=== PATIENT | female | born 1980 | race Caucasian/White ===

== ENCOUNTER 2016-11-14 12:50 | Inpatient (IN) | payer MEDICAID ==
[2016-11-14] MEDS ORDERED: fentaNYL 100 MCG/2 ML VIAL IVP PRN (13:12)
[2016-11-14] MEDS ORDERED: SODIUM CHLORIDE FLUSH 0.9% 10 ML SYRINGE IVP PRN (13:12)
[2016-11-14] MEDS: LACTATED RINGERS 1,000 ML IV SCH ×2 (13:42→18:38)
[2016-11-14 14:13] LABS: BASOPHILS # (AUTO) 0.2 10^3/uL (0.0-0.1); BASOPHILS % (AUTO) 1.4 %; EOSINOPHILS % (AUTO) 0.2 %; HCT - HEMATOCRIT 36.3 % (37.0-47.0); HGB - HEMOGLOBIN 12.5 g/dL (12.0-16.0); LYMPHOCYTES # (AUTO) 1.3 10^3/uL (1.5-3.5); LYMPHOCYTES % (AUTO) 8.3 %; MEAN CORPUSCULAR HEMOGLOBIN 31.8 pg (27.0-31.0); MEAN CORPUSCULAR HGB CONC 34.5 g/dL (32.0-36.0); MEAN CORPUSCULAR VOLUME 92.1 fL (81.0-99.0); MEAN PLATELET VOLUME 8.1 fL (7.9-10.8); MONOCYTES # (AUTO) 0.9 10^3/uL (0.0-1.0); MONOCYTES % (AUTO) 5.7 %; NEUTROPHILS # (AUTO) 13.6 10^3/uL (1.5-6.6); NEUTROPHILS % (AUTO) 84.4 %; NUCLEATED RED BLOOD CELLS AUTO 0.1 /100WBC; RED BLOOD COUNT 3.94 10^6/uL (4.20-5.40); RED CELL DISTRIBUTION WIDTH 13.7 % (12.0-15.0); UNCORRECTED WHITE BLOOD COUNT 16.1 x10^3/uL; WHITE BLOOD COUNT 16.1 x10^3/uL (4.8-10.8)
[2016-11-14] MEDS ORDERED: fentaNYL 100 MCG/2 ML VIAL ONE (14:16)
[2016-11-14] MEDS ORDERED: fent/BUPIV 2 MCG/0.125% 250 ML EP ONE (14:16)
[2016-11-14] MEDS ORDERED: ROPIVACAINE 0.2% PF 10 ML VIAL EPI ONE (14:30)
[2016-11-14] MEDS ORDERED: NALOXONE 0.4 MG/ML VIAL IVP PRN (15:14)
[2016-11-14] MEDS ORDERED: ONDANSETRON 4 MG/2 ML VIAL IVP PRN (15:14)
[2016-11-14] MEDS ORDERED: LACTATED RINGERS 500 ML IV ONE (15:14)
[2016-11-14] MEDS ORDERED: METOCLOPRAMIDE 10 MG/2 ML VIAL IVP PRN (15:14)
[2016-11-14] MEDS ORDERED: ePHEDrine 50 MG/ML VIAL IVP PRN (15:14)
[2016-11-14] MEDS ORDERED: diphenhydrAMINE INJ 50 MG/ML VIAL IVP PRN (15:14)
[2016-11-14] MEDS ORDERED: fent/BUPIV 2 MCG/0.125% 250 ML EP PRN (15:14)
[2016-11-14] MEDS ORDERED: NALBUPHINE 20 MG/ML AMP IVP PRN (15:14)
[2016-11-14] MEDS: CLINDAMYCIN 900 MG/50 ML 50 ML IV SCH (15:45)
--- NOTE | 2016-11-14 17:14 | PROVIDER PROGRESS NOTE ---
Labor Progress Note - Uterine Monitoring Uterine Monitoring Mode: positive: Palpation Contraction Frequency (min/apart): Q 3-4 min Contraction Intensity: positive: Moderate to strong Uterine Resting Tone: positive: Soft - Monitoring Monitor Mode: positive: External ultrasound Heart Rate Baseline: 120 Heart Rate Variability: positive: Moderate (6-25 bmp) Accelerations: positive: Present, 15x15 Decelerations: positive: None Strip Review: positive: Category I - Vaginal Exam Dilation (in cm): 10 Effacement (%): 100% Station: 2 Cervical Position: Anterior - Labor Progress Note Labor Progress Note/Additional Text: making inappropriate sarcastic comments to nursing and threatens to call his father "the insurance attorney" about her care. Nursing complained about these comments and they feel pressured, attempted intimidation, and that he may interfere w care. was sitting in hostile body posture and now pacing the L&D halls. Discussed situation w Nursing Carpet Measurer. My primary goal is to prevent this behavior from escalating and compromising her care, particularly if intervention is required such as forceps or Emergent CS. Discussed situation w GARY Coleman and I will discuss this issue directly w the . With epidural, dilation & descent occurring. EFM stable and CAT1 I did not have opportunity to meet, I was called to room for a 90sec deceleration. 's demeanor improved w time.
[2016-11-14] MEDS ORDERED: OXYTOCIN/SODIUM CHLORIDE 250 ML IV SCH (19:00)
--- NOTE | 2016-11-14 19:00 | HISTORY & PHYSICAL EXAMINATION ---
DATE OF ADMISSION: 11/14/2016 DIAGNOSES 1. A 41-week gestation, labor. 2. Failure to descend and dilate over 8 hours. 3. Prolonged rupture of membranes. 4. Advanced maternal age. HISTORY OF THE PRESENT ILLNESS: [facility] called to inform us of impending transfer of a mother in labor who has failed to significantly dilate beyond 8 cm with a stable tracing. At 1240, she arrived at the hospital in stable condition with her and Carine CONNOLLY in attendance. The patient is a 36-year-old primigravida at 41 weeks' gestation who ruptured her membranes on November 12 at roughly 8 a.m. and presented to [place]. Rupture was confirmed with AmniSure, and clear fluid was reported. Strip was reported as category 1. Contractions did not begin until November 13 at 4 a.m. Fluid was still reported as clear and tracing, category 1. She eventually progressed to 8 cm, at which time, further dilation and descent ceased. She was given castor oil on November 14, 2016, at 940 hours to augment labor. Intermittent auscultation was used. For pain relief, she began hot soaks on November 14, 2016, in the birthing tub. During intermittent auscultation at 12 a.m. on November 14, 2016, occasional deceleration was noted and the contractions subsided. This prompted a request for transfer of care. I reviewed the available paper chart records and was briefed by Carine Do of and intrapartum events. Currently, the patient reports stronger contractions than this morning at greater frequency. She reports good movement. There are no signs or symptoms of preeclampsia. She reports some "chills" sensation but no true rigors or fever. She has no urinary tract symptoms, recent illness, and her GBS status is negative. She denies symptoms of preeclampsia other than pedal edema. I had an extended discussion about transfer of care and the issues at hand inclusive of failure to dilate and descend, need for reliable heart tracing, inclusive possible insertion of scalp lead and IUPC, and the possibility of a section if there is no further progress. The patient is resistive to intervention. She was given reassurance that she would have a chance for explanation and no unreasonable interventions would take place. LABS: Blood type A positive, antibody screen negative, HIV negative chlamydia/gonorrhea negative, fern negative. Glucose challenge test normal, 90. Baseline hemoglobin 12.9, platelets 199. Quad marker screen, 1/350 Down's risk. 03/7299 neural tube defect risk. 1/10,000 trisomy 18 risk. Twenty-week anatomy scan, essentially normal growth. PAST MEDICAL HISTORY: The patient denies chronic disease history. Gynecologically, she denies STD history or abnormal Pap smear history. PAST SURGICAL HISTORY: The patient underwent a hernia repair in 1983. ALLERGIES: SENSITIVITY TO PENICILLIN AND LATEX NOTED. FAMILY HISTORY: No congenital anomalies, retardation, or genetic diseases is known of. SOCIAL HISTORY: . 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 Denies drug, tobacco or alcohol use. REVIEW OF SYSTEMS CONSTITUTIONAL: Negative. HEENT: Negative. PULMONARY: Negative. CARDIAC: Negative. GI: Negative. : Negative, reference HPI. MUSCULOSKELETAL: Negative. HEMATOLOGIC/LYMPHATIC: Negative. SKIN: Negative. NEUROLOGIC: Negative. PHYSICAL EXAMINATION GENERAL: The patient in cat position in labor, Carine Do in attendance. VITAL SIGNS: Temperature 97.7, blood pressure 130/70. HEENT: Supple neck. EOMI. Nonicteric sclerae. Moist mucous membranes. No thyromegaly. LUNGS: Clear to auscultation. CARDIAC: Regular functional murmur of . GI: No hepatosplenomegaly, no tenderness. UTERUS: nontender, clayton every 4 - 6 minutes, coxknedz-an-[id number] intensity. Vertex presentation. normal resting tone, nontender By Adam's, estimated weight 8 pounds. VULVA: Normal, No lesions. VAGINA: Ruptured membranes. No foul smell. Mec stain Cervix 8 cm, 100% effaced, near 0 presentation. initial exam BONY PELVIS: Normal spines. Normal AP diameter. Normal bituberous diameter, approximately 10.5, gynecologic. EXTREMITIES: 2+ pedal edema, warm to touch. NEUROLOGIC: Grossly intact. Cranial nerves intact. Patellar reflexes 3+ and equal. SKIN: Survey of the skin finds no needle reyes or rash. ASSESSMENT 1. This is a 41-week gestation who has had regular care with midwifery services and presented with spontaneous rupture of membranes that evolved into labor on the . She has been ruptured for greater than 48 hours and, therefore, would be termed prolonged. CBC is pending. There is no uterine tenderness or foul vaginal discharge to suggest overt infection. 2. The second issue is prolonged dilation at 8 cm. May have been due to inadequate contractions earlier in labor. Her contraction intensity is greater now and she may affect change. Additionally, however, if there is no change forthcoming, intervention such as IUPC, augmentation, or if necessary, section was presented to the patient. 3. Pain control is not adequate at this time. Discussed epidural, which anesthesia consultation has been ordered. We do not have the results of her CBC , which will be necessary prior to placing epidural. PLAN: The patient and fetus seem to be stable at this time. We will continue patient contact to build trust in case future intervention is required. After epidural is placed, if there is no forward progress, may consider IUPC and augmentation if indicated. Due to prolonged rupture of membranes, prophylactic antibiotic is recommended. The patient is PENICILLIN SENSITIVE, and therefore, clindamycin may be chosen. We will continue supportive care and intervene where necessary. JOB #: [id number] EXT JOB #:[id number] ALEXANDRA
[2016-11-14] MEDS ORDERED: LIDOCAINE 1% 50 ML MDV ONE ×2 (19:46→20:54)
[2016-11-14] MEDS ORDERED: MINERAL OIL LIGHT 10 ML MC ONE (19:49)
[2016-11-14] MEDS ORDERED: miSOPROStol 200 MCG TABLET PR ONE (21:02)
[2016-11-14] MEDS ORDERED: HYDROcod/ACETAM 5/325 MG TABLET PO PRN (21:32)
[2016-11-14] MEDS ORDERED: diphenhydrAMINE 25 MG CAPSULE PO PRN (21:32)
[2016-11-14] MEDS ORDERED: ACETAMINOPHEN 325 MG TABLET PO PRN (21:32)
[2016-11-14] MEDS ORDERED: OXYTOCIN/SODIUM CHLORIDE 250 ML IV ONE (21:32)
[2016-11-14] MEDS ORDERED: LACTATED RINGERS 1,000 ML IV SCH (22:00)
--- NOTE | 2016-11-14 22:01 | DELIVERY NOTE ---
Delivery Note - Labor Labor: positive: Augmented by oxytocin - Delivery Method Delivery Method: positive: Spontaneous vaginal delivery - Presentation Presentation: positive: Vertex, LIBRADO - right occiput anterior - Nuchal Cord Nuchal Cord: positive: None - Anesthetic Anesthetic Type: Anesthetic: positive: Lidocaine - 1% plain Volume: positive: Other (20) - Amniotic Fluid Description Amniotic Fluid Description: positive: Particulate meconium (Moderate), Other ( PROLONGED ROM +55 HOURS) - Episiotomy Type Episiotomy Type: positive: None - Laceration Laceration: positive: 2nd degree (ML) - Suture Suture Type: positive: Vicryl Suture Size: positive: 2-0, 3-0 - Delivery Outcome Delivery Outcome: positive: Livebirth - : positive: Bulb syringe, Warmed, [place] used, Warmer used, Other (Dr Taylor Present) [place] sex: positive: Female - Cord Cord: positive: 3 vessels (Short 20 cm or less; 1/2 sent to path to R/O [place]. Pt insisted on having 1/2 placenta to take home.) - Placenta Placenta: positive: Intact - Estimated Blood Loss Estimated Blood Loss (in cc): 1,200 - Post Delivery Events Post Delivery Events: positive: Hemorrhage - Delivery Comments (Free Text/Narrative) Delivery Comments (Free Text/Narrative): Female w 7lbs 11oz, Apgars 8/9 Art Ph 7.35. See Detailed Dictation
[2016-11-15] MEDS: SODIUM CHLORIDE FLUSH 0.9% 10 ML SYRINGE IVP SCH ×2 (00:25→06:51)
[2016-11-15] MEDS: IBUPROFEN 600 MG TABLET PO SCH ×2 (05:07→13:29)
[2016-11-15] MEDS: CLINDAMYCIN 900 MG/50 ML 50 ML IV SCH (05:12)
[2016-11-15] MEDS: WITCH HAZEL/GLYCERIN 1 EACH MED..PAD TOP PRN ×2 (05:17→16:20)
[2016-11-15] MEDS: HYDROCORTISONE/PRAMOXINE 10 GM PR PRN ×2 (05:18→16:19)
[2016-11-15 06:33] LABS: BASOPHILS % (AUTO) 0.6 %; EOSINOPHILS % (AUTO) 0.2 %; HCT - HEMATOCRIT 29.2 % (37.0-47.0); LYMPHOCYTES % (AUTO) 14.7 %; MEAN CORPUSCULAR HEMOGLOBIN 31.9 pg (27.0-31.0); MEAN CORPUSCULAR HGB CONC 34.1 g/dL (32.0-36.0); MEAN CORPUSCULAR VOLUME 93.5 fL (81.0-99.0); MEAN PLATELET VOLUME 7.8 fL (7.9-10.8); MONOCYTES % (AUTO) 9.7 %; NEUTROPHILS % (AUTO) 74.8 %; RED BLOOD COUNT 3.12 10^6/uL (4.20-5.40); RED CELL DISTRIBUTION WIDTH 13.7 % (12.0-15.0); UNCORRECTED WHITE BLOOD COUNT 16.6 x10^3/uL; WHITE BLOOD COUNT 16.6 x10^3/uL (4.8-10.8)
[2016-11-15 07:05] LABS: BAND NEUTROPHILS % (MANUAL) 3 %; LYMPHOCYTES % (MANUAL) 14 %; NEUTROPHILS % (MANUAL) 74 %; NP AUTO DIFFERENTIAL? YES; NP MAN DIFFERENTIAL? NO; PLATELET ESTIMATE, MANUAL DECREASED (<130,000) (NORMAL); TOTAL CELLS COUNTED 100
[2016-11-15 10:11] VITALS: BP 99/73
--- NOTE | 2016-11-15 10:37 | Discharge Plan ---
Discharge Plan Disposition: 01 Home, Self Care Condition: Good Diet: Regular Activity Restrictions: Activity as Tolerated Shower Restrictions: No Driving Restrictions: No Weight Bearing: Full Weight No Smoking: If you smoke, Please STOP! Call for help. Follow-up with: Quintin Wray MD [Provider Admit Priv/Credential] -
--- NOTE | 2016-11-15 17:12 | Labor Flowsheet ---
Labor Flowsheet Datetime Report Generated by CPN: 11/15/2016 17:11 Datetime: 11/15/2016 10:01 VITAL SIGNS NBP Sys/Marlys/Mean (mmHg): 99 : 73 : 79 Pulse: 140 Datetime: 11/15/2016 04:35 SpO2 (%): 95 Datetime: 11/14/2016 21:01 Stage of : Recovery Datetime: 11/14/2016 20:42 Stage 2 Comments: baby girl delivered and placed immed on mom's abd per pt request. Datetime: 11/14/2016 20:22 Patient Position/Activity: Semi-Fowlers Hygiene: Celeste Care Datetime: 11/14/2016 20:16 Pushing Progress: Presenting Part Visible LaborFlag: Labor Datetime: 11/14/2016 20:15 UTERINE ACTIVITY Monitor Mode: External Frequency (min): 2-3 Quality: Strong Duration (sec): 60-90 Resting Tone (Palpate): Relaxed ASSESSMENT A Monitor Mode: Internal Scalp Electrode FHR Baseline Rate : 130 Variability: Moderate 6-25 bpm Accelerations: 15X15 Decelerations: Variable Category: Category II Comments: pushing with contractions Datetime: 11/14/2016 20:09 I/O Interventions: Ice Chips Given; Straight Cath (ml) @ 100 Patient Care Comments: passing lg amts loose stool Datetime: 11/14/2016 20:00 Pattern: Normal: <= 5 Contractions in 10 Minutes Contraction Comments: Pushing with contractions Datetime: 11/14/2016 19:49 Actions for Decelerations: Oxygen Applied Datetime: 11/14/2016 19:30 Temperature (C): 36.5 Temperature Route: Oral MEDICATIONS Pitocin (milliunits): Increased to @ (Annotations: 4) STAGE 2 Pushing: Coached on Pushing Pushing Position: Pushing Left Side Datetime: 11/14/2016 19:00 Respirations: 16 COMMUNICATION Communication: Report Given to @ (Annotations: EDITA [place]) Datetime: 11/14/2016 18:55 Anesthesia Comments: epidural rate decreased to 2cc/hour by anethesia provider Datetime: 11/14/2016 18:39 Communication Comments: provider remains at perineum and reviews tracing on an ongoing basis Datetime: 11/14/2016 18:26 Pitocin Checklist: At Least 1 Acceleration of 15 bpm x 15 Seconds in 30 Minutes or Adequate Variabi lity; No More than 5 Uterine Contractions in 10 Minutes for any 20 Minute Interval (Annotations: pitocin orders received despite not meeting pitocin checklist criteria realted to pa tient pushing, spaced frequency of contractions) Datetime: 11/14/2016 18:15 PATIENT CARE IV/Blood Work: New IV Bag Hung; IV Bag Number @ (Annotations: 3) Datetime: 11/14/2016 18:10 Amniotic Fluid Color: Heavy Meconium (Annotations: Dr. Wray identifies meconium; nursery staff and mill beam fitter aware) Datetime: 11/14/2016 18:06 Membrane Comments: toco monitoring inaccurate; uterine monitoring throughout pushing consisted of p alpation verification Datetime: 11/14/2016 18:05 Provider Notified (Name): Dr. Taylor, Respiratory therapy and nursery nurse at bedside Datetime: 11/14/2016 17:59 Monitor Interventions for FHR: FSE Applied Preparation for Delivery: Setup for Delivery Datetime: 11/14/2016 17:45 Oxygen Amount (LPM): 10 Oxygen Method: Non-Rebreather Datetime: 11/14/2016 17:30 Monitor Interventions for UA: poor trace Datetime: 11/14/2016 16:54 VAGINAL EXAM Dilatation (cm): 10.0 Station: 3 Exam by: Dr. Wray Datetime: 11/14/2016 16:53 Anesthesia Level Check: T8- Ribs Datetime: 11/14/2016 16:13 Vaginal Exam Comments: cervix appears thicker on right side then left side Datetime: 11/14/2016 15:50 Antibiotics: Clindamycin IV 900 mg Datetime: 11/14/2016 15:06 Epidural Procedure Other: Pump Started (Annotations: pump initiated per anesthesia provider at 10cc /hour) Datetime: 11/14/2016 15:05 PAIN Pain Scale: 3 Datetime: 11/14/2016 14:46 Epidural Procedure: Test Dose Datetime: 11/14/2016 14:35 PROCEDURE TIME OUT Procedure Verify: Correct Patient Identity; Accurate Procedure Consent Form; Agreement on Procedure to be Done; Correct Patient Position; Addressed Need to Administer Antibiotics or Fluids for Irrigat ion; Safety Precautions Based on Patient History or Medication Use ANESTHESIA Anesthesia Plans: Epidural Epidural Positioning: Sitting
--- NOTE | 2016-11-16 08:31 | DISCHARGE SUMMARY ---
DATE OF ADMISSION: 11/14/2016 DATE OF DISCHARGE: 11/15/2016 DIAGNOSES 1. Transfer from [facility] in labor. 2. A 41-week gestation in labor. 3. Failure to descend and dilate in active stage of labor. 4. Prolonged rupture of membranes. 5. Advanced maternal age. 6. Category II heart tracing including deep decelerations and prolongation of deceleration. 7. Meconium. 8. Prolonged rupture of membranes, over 50 hours. 9. Advanced maternal age. 10. Successful delivery of a living female infant. 11. hemorrhage. 12. Pitocin augmentation. PROCEDURE: Vaginal delivery over intact perineum of a living female infant; repair minor vaginal laceration. HISTORY: The patient is [facility] transfer because she failed to dilate over 8 hours and was stuck at 8 cm with stable heart tones. The patient is a 36-year-old primigravida at 41 weeks 0 days who ruptured her membranes 11/12/2016 at roughly 8 a.m. She had no fevers, chills, or uterine tenderness. Initial vaginal exam revealed 8 cm dilation and just above 0 in engagement. Tracing was category I, but there was some doubt if the uterine contractions were adequate. Reference typewritten H and P. HOSPITAL COURSE: The patient was admitted and received an epidural for pain control. After epidural, she was noted to begin to progress. By 5 o'clock, she was complete. heart tones became category II with variable decelerations and 1 prolonged deceleration over 90 seconds. The patient allowed placement of internal scalp lead. Resuscitation with oxygen, fluid and positional change resuscitated the fetus. She began to push with good effort by 1800. There were multiple bouts of variable decelerations, but the strip did not degenerate into category III. Moderate meconium was noted. Service Line Layer and Anesthesia were in attendance. The patient did have diarrhea, and perineal cleansing with Hibiclens plus multiple sheet changes occurred to maintain a clean vagina and perineum. Push and stretch technique was used. At 2042 hours, a living female infant was born weighing 7 pounds 11 ounces and scoring Apgars of 8 and 9. Arterial cord pH was good at 7.35. The responded well. Short cord was noted. Placenta was sent to pathology. She had an uneventful minor laceration repair. Reference typewritten operative note. Post delivery patient did well rapidly advancing to full diet and activity. Her diarrhea gradually subsided. Her baseline hemoglobin on admission was 12.5 and postop day #1 10.0. Platelets were at 116. Throughout the course, she remained afebrile and normotensive with blood pressures 116/62 to 99/73. Respirations remained at 12. On post delivery day #1, the patient strongly desired discharge. She was advised that maternal or even infection may not declare itself until later. We reviewed the signs and symptoms of maternal infection including fever , foul discharge, excessive bleeding and perineal pain. She was instructed to continue ice packs for the first 24 hours and then start Sitz baths. She will either see [facility] or our clinic as needed in 6 weeks. We briefly discussed control options, and at the present time, the couple prefer condoms. JOB #: [id number] EXT JOB #:[id number] ALEXANDRA
--- NOTE | 2016-11-16 13:19 | OPERATIVE REPORT ---
DATE OF SURGERY: 11/14/2016 00:00:00 PREOPERATIVE DIAGNOSES 1. A 41 week gestation. 2. Failure to descend and dilate in the active stage. 3. Prolonged rupture of membranes. 4. Advanced maternal age. 5. Category II heart tracing. 6. Prolongation of 2nd stage of labor. POSTOPERATIVE DIAGNOSES 1. Successful vaginal delivery of a living female infant. 2. Particulate meconium. Meconium not a predominant factor in delivery. 3. Issue of chorioamnionitis pending pathology. 4. Short cord, less than 20 cm in length. 5. A 41 week gestation. 6. Failure to descend and dilate in the active stage. 7. Prolonged rupture of membranes. 8. Advanced maternal age. 9. Category II heart tracing. 10. Prolongation of 2nd stage of labor. 11. Extensive diarrhea secondary to prior castor oil administration. NAME OF PROCEDURE: Vaginal delivery over intact perineum of a living female ; repair of minor midline 2nd degree laceration. SURGEON: Quintin Wray MD, FACOG, FICS ANESTHESIA: Alhaji Clinton CRNA, epidural; Dr. Wray 20 mL of 1% lidocaine to perineum. QUALITY ASSURANCE INSPECTOR: Shukri Taylor MD, pediatrics attending 2nd stage of labor and delivery. COMPLICATIONS: hemorrhage secondary to uterine atony. BLOOD LOSS: 1200 mL. DRAINS: Patient straight catheterized prior to delivery and during hemorrhage incident, 350 mL clear urine obtained. MEDICATIONS: Clindamycin 900 q.6 h., prolonged rupture of membranes prophylaxis. FINDINGS: At 2042 hours a living female was born weighing 7 pounds 11 ounces and scoring Apgars of 8/9. Cord gas samples were taken at that time, and arterial cord pH was 7.35. The had extensive caput and some bruising. There was a slight amount of vernix. There were no evident congenital anomalies or significant trauma. Reference Dr. Taylor's notes. The placenta was spontaneously delivered intact. The cord was measured to be short, slightly under 20 cm total. The cord had a 3-vessel configuration, and there was no cord entanglement on delivery. The amniotic membranes and cord were stained with meconium. There was no foul smell to the placenta or the fluid per se. Inspection of the vulva and vagina found a shallow 2nd degree midline laceration , extended into the vagina approximately 4 cm and down the perineum for another 3 cm. The anal sphincter and rectum were not involved. This was uneventfully repaired. SPECIMENS: One-half of the placenta inclusive of cord was submitted to Pathology for microscopic evaluation. The patient insisted on keeping half of the placenta for herself. The placenta was cultured. HOSPITAL COURSE: The patient was admitted and observed, at which time better pain relief was achieved after an epidural uneventfully placed. The initial strip showed flattened variability with a baseline of about 130. Contractions were every 6 minutes. Plan was to provide her relief and revaluate in 2 hours. Patient did have some mild hypotension, which was treated by Alhaji Clinton CRNA, with ephedrine. Initial evaluation was consistent with midwifery report of 8 cm. Reevaluation was done after placement of epidural, and there was evident progression with the cervix becoming 9 cm to rim-like. TOCO tracing was hard to follow exact contractions. By 1615 hours tracing had become a cat II with multiple deep variables down to 100 with a baseline of approximately 120, reference of frames [id number]. We requested placement of scalp lead, but patient refused. She stated that she had a scar on her head from a scalp lead and did not want to risk that with the baby. It was explained that it was important to get solid FHR tracing information. IFM request was made twice. Roughly 1700, the reexamination confirmed completion. External tracing was hard to follow with deceleration to the 90s, reference frame [id number]. Again, it was clearly explained to the patient the need for the scalp lead. She was turned on her left side. Oxygen was applied, and fluid bolus accomplished. She remitted, and scalp lead was placed. On numerous occasions, the possibility of an intervention was explained to the patient, including vacuum and possible need for urgent section. She voiced understanding. The patient's had made remarks about involving his father "the nitrator operator" to review her care. Other disparaging remarks were made that caused Nursing to complain. It was decided to deescalate. Dr. Taylor continued light conversation with the father of the baby, and the situation smoothed out. Patient and family had little sleep over the last 48 hours. Cat II strip continued with occasional variable, and a 90 second deceleration to the 90s, reference frame [id number] and [id number]. FHT tracing changes prompted salon professional & Anesthesia, Alhaji Whitmarsh to be called to the room. Resuscitation was successful, and tracing returned to the 120 to 130 with moderate variation and occasional acceleration. Moderate meconium was noted at 1810 hours. The patient had multiple bouts of diarrhea, her bed clothing and drapes and floor were changed on 3 occasions. Perineum was washed with Hibiclens solution. The patient began to push in earnest around 1800. There were a series of variable decelerations at 1840 hours, returning the strip to a category II status. As patient became more focused on her pushing, she was able to bring the head to +2 position. Epidural was gradually turned down to enhance her reflexes. The contractions had spaced out to q.6-7 minutes, and therefore, low- dose Pitocin augmentation was done. The patient pushed with good effort. The head was in an LIBRADO position, and I was able to manually rotate it to OA. Numerous positions were used, left-sided, right-sided pushing, to facilitate the labor. There were early accelerations and decelerations present. As the head came down, push and stretch method was used with perineal massage. The patient atraumatically crowned at 2 hours. Negrete maneuver was used to facilitate delivery of the head. After delivery of the head, there was no nuchal cord or other entanglement. Shoulders were delivered without difficulty. was placed on the maternal abdomen. The cord was noted to be short and quite fragile. Cord was immediately clamped to prevent blood loss since there was a small rent noted in mid cord. Father transected the cord towards the umbilical base. Mother, father and bonded. Dr. Taylor then examined and evaluated the baby. Peritoneum inspected, and there was a 2nd degree laceration, and no significant bleeding. Cord gases and cord blood samples were taken and sent. The laceration was closed with a running 2-0 Vicryl, reconstructing the vaginal tube, taking care to reapproximate the hymenal ring. Next, a crown stitch was placed with 2 strands of #2 Vicryl to reconstitute the perineal body. Deep space was closed with running stitch of 2-0 Vicryl. Skin was closed with multiple vertical mattress interrupted stitches of 3-0 Vicryl. There was no involvement of the rectum or the external rectal sphincter. The vagina was inspected closely, and there were no lacerations noted. Cervix was visualized, and there were no obvious lacerations. The placenta was spontaneously delivered intact. Close examination confirmed that it was intact. After delivery of the placenta, the patient began to bleed briskly. Immediate uterine massage was begun with massage and Pitocin. Bleeding continued, and I inserted my hand to elevate the uterus. Elevating the uterus decreased the blood loss, and 800 mcg of Cytotec were placed intrarectal to aid the atony. The cavity was palpated, and there were no retained fragments but confirmed global atony of the myometrium. The uterus responded Cytotec, massage and Pitocin. I removed my hand, and the flow returned to a normal level. Total blood loss was 1200 mL. The placenta was divided in half with the half containing cord sent to pathology to ensure there was no chorioamnionitis. did well and remained stable. After delivery, the father of the baby apologized for his remarks and behavior. BASIC LABS: Rh positive, rubella immune, RPR negative, HIV negative, GBS negative. It popped. JOB #: [id number] EXT JOB #:[id number] ALEXANDRA
== END 2016-11-15 16:45 | disposition home or self-care (01) | DRG 774 ==
LOC: WFO 12:50 → FBP 13:11
PROVIDERS: ADMIT Obstetrics & Gynecology; ATTEND Obstetrics & Gynecology
PROC: 10E0XZZ Delivery of Products of Conception, External Approach (ICD-10-PCS; principal; 2016-11-14)
PROC: 0KQM0ZZ Repair Perineum Muscle, Open Approach (ICD-10-PCS; 2016-11-14)
PROC: 10H07YZ Insertion of Other Device into Products of Conception, Via Natural or Artificial Opening (ICD-10-PCS; 2016-11-14)
DX: O64.8XX0 Obstructed labor due to other malposition and malpresentation, not applicable or unspecified (principal); O72.1 Other immediate postpartum hemorrhage; K52.1 Toxic gastroenteritis and colitis; O42.02 Full-term premature rupture of membranes, onset of labor within 24 hours of rupture; O76 Abnormality in fetal heart rate and rhythm complicating labor and delivery; O63.1 Prolonged second stage (of labor); O69.3XX0 Labor and delivery complicated by short cord, not applicable or unspecified; O70.1 Second degree perineal laceration during delivery; O77.0 Labor and delivery complicated by meconium in amniotic fluid; O26.53 Maternal hypotension syndrome, third trimester; O99.62 Diseases of the digestive system complicating childbirth; T47.2X5A Adverse effect of stimulant laxatives, initial encounter; Z37.0 Single live birth; Z3A.41 41 weeks gestation of pregnancy; Z88.0 Allergy status to penicillin
CPT/HCPCS: 36415; 85025; 99211